=== PATIENT | female | born 1985 | race Caucasian/White ===

== ENCOUNTER 2016-08-29 08:01 | Emergency (ER) | payer OTHER ==
[~2016-08-29] VITALS: Ht 165.1 cm; Wt 75.8 kg
[~2016-08-29 08:01] MED LIST: ASPI325T39 PO; CITA20TA4 PO; LORA-741 PO; OMEP20TA PO
[2016-08-29 08:06] VITALS: TEMP 37; Ht 165.1 cm; Wt 75.8 kg
[2016-08-29] MEDS ORDERED: BCPILLS PO (08:29)
[2016-08-29 08:58] LABS: BASO % 0.3 %; BASO ABS # 0.02 K/uL (0-0.2); COMPLETE YES; HEMATOCRIT 39.8 % (37-47); IG% 0.2 %; LYMPH % 18.2 %; LYMPH ABS # 1.17 K/uL (1.2-3.4); MEAN CELL VOLUME 89.8 fL (80-100); MEAN CORPUSCULAR HGB CONC 33.4 g/dl (32-36); MEAN PLATELET VOLUME 10.4 fL (7.4-10.4); MONO % 7.2 %; NEUT % 72.1 %; PLATELET COUNT 218 K/uL (130-400); RED BLOOD COUNT 4.43 M/uL (4.2-5.4); WHITE BLOOD COUNT 6.42 K/uL (4.8-10.8)
[2016-08-29 09:18] LABS: CALCIUM 8.5 mg/dl (8.5-10.1); CREATININE 0.94 mg/dl (0.60-1.20); POTASSIUM 3.6 mmol/L (3.5-5.1)
[2016-08-29 09:22] LABS: URINE APPEARANCE CLEAR (CLEAR); URINE BILIRUBIN NEG (NEG); URINE COLOR YELLOW; URINE EPITHELIAL CELL AUTO >30 /lpf (0-5); URINE NITRITE NEG (NEG); URINE PH 6.5 (4.5-7.5); URINE SPECIFIC GRAVITY 1.026 (1.000-1.030); UROBILINOGEN NEG (NEG)
[2016-08-29 09:23] LABS: MANUAL MICROSCOPIC REQUIRED? NO; REVIEW REQ? NO
[2016-08-29 09:28] LABS: THYROID STIMULATING HORMONE 2.68 uIu/ml (0.300-4.500)
[2016-08-29] MEDS ORDERED: ONDANSETRON 4MG OD TAB PO STA (09:28)
[2016-08-29] MEDS ORDERED: LORA1TAB13 PO (10:29)
[2016-08-29 10:52] VITALS: BP 97/64; PULSE 71; O2SAT 99
--- NOTE | 2016-08-29 17:15 | EMERGENCY ROOM VISIT NOTE ---
History First contact with patient: 08:15 Chief Complaint: GI ASSESSMENT Stated Complaint: NAUSEA,ANXIETY,HEADACHE Nursing Triage Summary: nausea, episode of diarrhea, states also has a hx of anxiety, states needed her mom to come to her home and she gave her a pill (lorazepam). Pt states she had been prescribed lorazepam in the past, this was her moms pill. "I think I'm dehydrated." per pt. History of Present Illness The patient is a 31 year old white female who presents to the Emergency Room with complaints of nausea, mild headache, and significant anxiety. She states she has a history of anxiety. She used to take a daily anxiolytic, but was doing well and thought she could do without it. She stopped it on her own. She states there was a coworker who was ill at work yesterday. She assisted in that person's care. Shortly after, she developed some anxiety. She was able to control it on her own and went home last night. She had persisting anxiety through the evening. She awoke this morning with worsened anxiety. She did take a half a tablet of lorazepam this morning. It helped, but did not fully resolve her symptoms. Patient states she has been sleeping well. She has chronic stress at work and that it is not any worse than usual. No new medications. She only drinks one cup of coffee per day. No other caffeine intake. No other triggers that she is aware of. She is wondering if she is dehydrated. She is nauseated but denies any vomiting. No fevers, chills, sweats, diarrhea, abdominal pain, or back pain. She did have some tingling in her fingers and toes earlier, but this has resolved. She continues to have some tingling around her lips. She states she has at the end of her menstrual cycle, but does not think that this is related. Review of Systems REVIEW OF SYSTEM: HEENT: No dizziness, visual problems, hearing loss, or tinnitus. There is no difficulty swallowing and no oral lesions are present. PULMONARY: No cough, shortness of breath, sputum production or hemoptysis. CARDIOVASCULAR: No chest pain, palpitations, shortness of breath or peripheral edema. GASTROINTESTINAL: No diarrhea, constipation, nausea, vomiting, or abdominal pain. GENITOURINARY: No dysuria, frequency, urgency or nocturia. NEUROLOGIC: No weakness, muscle tenderness, epilepsy or history of neurological problems. No history of chronic headaches. MUSCULOSKELETAL: No history of joint tenderness/swelling. No history of arthritis or arthralgias. SKIN: No rashes or lesions. PSYCHIATRIC: Positive history of anxiety. ENDOCRINE: No history of diabetes, thyroid disorders, or abnormal hair growth. Past Medical/Surgical History Medical Problems: (1) Ovarian cyst Previous surgeries: Herniorrhaphy age 2. Family History FH: cancer Significant for diabetes and hypertension. Parents are living. Social History Smoking Status: Current Some Day Smoker Smokeless Tobacco Use: No Alcohol Use: occasionally Drug Use: none Marital Status: single Housing Status: lives with family Occupation Status: employed Current/Historical Medications Scheduled Control Pills ( Control Pills), 1 TAB PO DAILY Scheduled PRN Lorazepam (Lorazepam), 1 TAB PO TID PRN for Anxiety/Insomnia Allergies Coded Allergies: Morphine (Verified Adverse Reaction, Unknown, GI SYMPTOMS, 08/29/16) Physical Exam Vital Signs Date Time Temp Pulse Resp B/P Pulse Ox O2 Delivery O2 Flow Rate FiO2 08/29/16 10:52 71 16 97/64 99 08/29/16 10:39 71 97/64 99 Room Air 08/29/16 09:36 76 16 110/67 98 Room Air 08/29/16 08:06 37.0 88 16 127/75 97 Room Air Pain Rating (0-10): 0 Physical Exam Gen.: Well-developed, well-nourished, young white female, in no acute distress. Sitting on a bed. Somewhat anxious. Alert and oriented. Skin:Warm and dry with good turgor. No rashes or lesions. No ecchymosis or erythema. The patient is not diaphoretic. No abrasions. Multiple tattoos. HEENT: Normocephalic atraumatic. Eyes PERRLA, EOMI. No conjunctiva or scleral injection. Ears TMs intact bilaterally with good light reflexes. No erythema or bulging. No hemotympanum. Canals are patent. Nares patent bilaterally without turbinate enlargement. No significant drainage. No epistaxis. Oropharynx without erythema or exudate. Uvula midline, oral mucosa moist. No lesions present. Heart: Heart RRR. No MGR. Peripheral pulses are 2+. Lungs: Lungs are clear to auscultation. No crackles rhonchi or wheezing. Good air movement. The patient is able to take a deep breath. Abdomen: Abdomen was inspected, auscultated, and palpated. Bowel sounds present x 4. Soft, nontender to palpation. No hepato-splenomegaly. No masses noted. No rebound. Musculoskeletal: Gross motor function of the upper and lower extremities is intact and unremarkable. Neurologic: Gross sensation is intact across the upper and lower extremities by soft touch. Cranial nerves II through XII are intact. Medical Decision & Procedures Laboratory Results 08/29/16 08:40 Red Blood Count 4.43, Mean Corpuscular Volume 89.8, Mean Corpuscular Hemoglobin 30.0, Mean Corpuscular Hemoglobin Concent 33.4, Mean Platelet Volume 10.4, Neutrophils (%) (Auto) 72.1, Lymphocytes (%) (Auto) 18.2, Monocytes (%) (Auto) 7.2, Eosinophils (%) (Auto) 2.0, Basophils (%) (Auto) 0.3, Neutrophils # (Auto) 4.63, Lymphocytes # (Auto) 1.17, Monocytes # (Auto) 0.46, Eosinophils # (Auto) 0.13, Basophils # (Auto) 0.02 08/29/16 08:40 Test 08/29/16 08:30 08/29/16 08:40 Urine Color YELLOW Urine Appearance CLEAR (CLEAR) Urine pH 6.5 (4.5-7.5) Urine Specific [place] 1.026 (1.000-1.030) Urine Protein NEG (NEG) Urine Glucose (UA) NEG (NEG) Urine Ketones TRACE (NEG) Urine Occult Blood 1+ (NEG) Urine Nitrite NEG (NEG) Urine Bilirubin NEG (NEG) Urine Urobilinogen NEG (NEG) Urine Leukocyte Esterase NEG (NEG) Urine WBC (Auto) 1-5 /hpf (0-5) Urine RBC (Auto) 0-4 /hpf (0-4) Urine Hyaline Casts (Auto) 1-5 /lpf (0-5) Urine Epithelial Cells (Auto) >30 /lpf (0-5) Urine Bacteria (Auto) NEG (NEG) White Blood Count 6.42 K/uL (4.8-10.8) Red Blood Count 4.43 M/uL (4.2-5.4) Hemoglobin 13.3 g/dL (12.0-16.0) Hematocrit 39.8 % (37-47) Mean Corpuscular Volume 89.8 fL (80-100) Mean Corpuscular Hemoglobin 30.0 pg (25-34) Mean Corpuscular Hemoglobin Concent 33.4 g/dl (32-36) Platelet Count 218 K/uL (130-400) Mean Platelet Volume 10.4 fL (7.4-10.4) Neutrophils (%) (Auto) 72.1 % Lymphocytes (%) (Auto) 18.2 % Monocytes (%) (Auto) 7.2 % Eosinophils (%) (Auto) 2.0 % Basophils (%) (Auto) 0.3 % Neutrophils # (Auto) 4.63 K/uL (1.4-6.5) Lymphocytes # (Auto) 1.17 K/uL (1.2-3.4) Monocytes # (Auto) 0.46 K/uL (0.11-0.59) Eosinophils # (Auto) 0.13 K/uL (0-0.5) Basophils # (Auto) 0.02 K/uL (0-0.2) RDW Standard Deviation 40.9 fL (36.4-46.3) RDW Coefficient of Variation 12.5 % (11.5-14.5) Immature Granulocyte % (Auto) 0.2 % Immature Granulocyte # (Auto) 0.01 K/uL (0.00-0.02) Anion Gap 10.0 mmol/L (3-11) Est Creatinine Clear Calc Drug Dose 87.5 ml/min Estimated GFR () 93.0 Estimated GFR (Non- 80.3 BUN/Creatinine Ratio 15.0 (10-20) Calcium Level 8.5 mg/dl (8.5-10.1) Thyroid Stimulating Hormone (TSH) 2.680 uIu/ml (0.300-4.500) Free Thyroxine 0.93 ng/dl (0.80-1.60) CBC, PRP, UA, urine , TSH, and free T4 were obtained. They're all unremarkable. Medications Administered Medications (Trade) Dose Ordered Sig/Jose Alejandro Route Start Time Stop Time Status Last Admin Dose Admin Ondansetron HCl (Zofran Odt) 4 mg NOW STAT PO 08/29/16 09:28 08/29/16 09:29 DC 08/29/16 09:36 4 MG Zofran 4 mg ODT ED Course Patient was educated regarding today's findings. Conservative care measures were discussed. IV was established. Labs were obtained. She was given Zofran 4 mg ODT. Nausea resolved. She was able to sleep. She felt better upon awaking. I would like her to follow-up with her PCP to discuss a daily anxiolytic again. In the meantime, she was provided a prescription for lorazepam 1 mg to be used every 8 hours as needed. Note for work was provided for today. She may return tomorrow. Return to the ED for any other concerns or acute changes. I'm not sure of the trigger of her anxiety. Medical Decision Possibility of thyroid abnormality, electrolyte abnormality, anemia, lack of sleep, caffeine, and external stress were considered. Impression Primary Impression: Anxiety Departure Information Dispostion Home / Self-Care Condition GOOD Prescriptions Lorazepam (LORAZEPAM) 1 Mg Tab 1 TAB PO TID Y for Anxiety/Insomnia, #15 TAB Prov: Adrian Howe,P.A. 08/29/16 Referrals Lizet Haddad M.D. (PCP) Forms WORK / SCHOOL INSTRUCTIONS, HOME CARE DOCUMENTATION FORM, Days off work : 1 Work Instructions, Return To Work: 1 day Specific Date: 08/30/16 IMPORTANT VISIT INFORMATION Patient Instructions My [facility] Additional Instructions Follow-up with your PCP this week to discuss restarting a baseline anxiety medication Return to the ED for any acute changes Lorazepam 1 mg every 8 hours as needed for anxiety Limit caffeine intake Be sure to get adequate rest and maintain hydration Work Instructions Return To Work: 1 day Specific Date: 08/30/16
== END 2016-08-29 10:52 | disposition home or self-care (01) ==
LOC: C.EDB 08:02 → C.EDA 10:52
DX: F41.9 Anxiety disorder, unspecified (principal); N83.209 Unspecified ovarian cyst, unspecified side; F17.200 Nicotine dependence, unspecified, uncomplicated; Z98.890 Other specified postprocedural states; Z88.5 Allergy status to narcotic agent; Z80.9 Family history of malignant neoplasm, unspecified; Z83.3 Family history of diabetes mellitus; Z82.49 Family history of ischemic heart disease and other diseases of the circulatory system

== ENCOUNTER 2016-10-10 19:16 | Emergency (ER) | payer OTHER ==
[~2016-10-10] VITALS: Ht 165.1 cm; Wt 74.2 kg
[~2016-10-10 19:16] MED LIST changes: -ASPI325T39 PO; +BCPILLS PO; -CITA20TA4 PO; -LORA-741 PO; +LORA1TAB13 PO; -OMEP20TA PO
[2016-10-10 19:20] VITALS: TEMP 36.7; Ht 165.1 cm; Wt 74.2 kg
[2016-10-10 19:34] VITALS: O2SAT 98
--- NOTE | 2016-10-10 19:42 | DIAGNOSTIC IMAGING REPORT ---
CHEST ONE VIEW PORTABLE HISTORY: Evaluate Fever/Sepsis COMPARISON: Chest 11/15/2014. FINDINGS: The lungs are clear. Cardiac silhouette is normal in size. No pleural effusions. No pneumothorax. IMPRESSION: No acute process. Electronically signed by: Rodrigo Angulo M.D. 10/10/2016 7:41 PM Dictated Date/Time: 10/10/2016 7:40 PM
[2016-10-10 20:01] LABS: ISTAT CREATININE 0.8 mg/dl (0.6-1.3); ISTAT HEMOGLOBIN 13.9 g/dl (12.0-16.0); ISTAT IONIZED CALCIUM 1.2 mmol/l (1.12-1.32)
--- NOTE | 2016-10-10 20:07 | EMERGENCY ROOM VISIT NOTE ---
History Report prepared by Mahsa: Tegan Marr Under the Supervision of: Dr. Saad Barron D.O. First contact with patient: 19:24 Chief Complaint: CHEST PAIN Stated Complaint: CHEST PAIN History of Present Illness The patient is a 31 year old female who presents to the Emergency Room with complaints of persistent central chest pain that began a few days ago, but worsened today. She currently rates her discomfort as a 6/10 in severity. The patient describes her pain as a sharp pain intermittently, but states that the pain is always there. She additionally associates shortness of breath with her symptoms today. The patient denies ever having pain like this in the past. She denies any recent illness, fevers, chills, or cough. Source of History: patient Onset: today Position: chest (central) Symptom Intensity: 6/10 Quality: sharp Timing: worsening, other (persistent) Associated Symptoms: + SOB, No chills, No cough, No fevers Review of Systems See HPI for pertinent positives & negatives. A total of 10 systems reviewed and were otherwise negative. Past Medical & Surgical Medical Problems: (1) Ovarian cyst Family History FH: cancer Social History Smoking Status: Current Some Day Smoker Alcohol Use: occasionally Drug Use: none Marital Status: single Housing Status: lives with family Occupation Status: employed Current/Historical Medications Scheduled Control Pills ( Control Pills), 1 TAB PO DAILY Scheduled PRN Lorazepam (Lorazepam), 1 TAB PO TID PRN for Anxiety/Insomnia Allergies Coded Allergies: Morphine (Verified Adverse Reaction, Unknown, GI SYMPTOMS, 08/29/16) Physical Exam Vital Signs Date Time Temp Pulse Resp B/P Pulse Ox O2 Delivery O2 Flow Rate FiO2 10/10/16 19:34 98 Room Air 10/10/16 19:34 98 Room Air 10/10/16 19:20 36.7 72 18 112/75 94 Room Air Physical Exam CONSTITUTIONAL/VITAL SIGNS: Reviewed / noted above. GENERAL: Non-toxic in appearance. INTEGUMENTARY: Warm, dry, and [place]. HEAD: Normocephalic. EYES: without scleral icterus or trauma. ENT/OROPHARYNX: clear and moist. LYMPHADENOPATHY/NECK: Is supple without lymphadenopathy or meningismus. RESPIRATORY: Lungs clear and equal. CARDIOVASCULAR: Regular rate and rhythm. GI/ABDOMEN: Soft and nontender. No organomegaly or pulsatile mass. No rebound or guarding. Normal bowel sounds. EXTREMITIES: Warm and well perfused. BACK: No CVA tenderness. NEUROLOGICAL: Intact without focal deficits. PSYCHIATRIC: normal affect. MUSCULOSKELETAL: Normally developed with good muscle tone. Medical Decision & Procedures ER Provider Diagnostic Interpretation: X ray results and stated below per my interpretation and radiology interpretation. CHEST ONE VIEW PORTABLE HISTORY: Evaluate Fever/Sepsis COMPARISON: Chest 11/15/2014. FINDINGS: The lungs are clear. Cardiac silhouette is normal in size. No pleural effusions. No pneumothorax. IMPRESSION: No acute process. Electronically signed by: Rodrigo Angulo M.D. 10/10/2016 7:41 PM Dictated Date/Time: 10/10/2016 7:40 PM Laboratory Results Test 10/10/16 19:45 10/10/16 19:48 Bedside D-Dimer 100 ng/mlFEU (0-450) Bedside Troponin I 0.000 ng/ml (0-0.045) Bedside Hemoglobin 13.9 g/dl (12.0-16.0) Bedside Hematocrit 41 % (37-47) Bedside Sodium 141 mEq/L (135-144) Bedside Potassium 3.4 mEq/L (3.3-5.0) Bedside Chloride 103 mEq/L (101-112) Bedside Total CO2 25 mEq/l (24-31) Anion Gap 18.0 mmol/L (16-25) Bedside Blood Urea Nitrogen 19 mg/dl (7-18) Bedside Creatinine 0.8 mg/dl (0.6-1.3) Bedside Glucose (other) 82 mg/dl (70-99) Bedside Ionized Calcium (Xiomy) 1.20 mmol/l (1.12-1.32) Laboratory results as stated above per my review. ECG Indication: chest pain Rate (beats per minute): 65 Rhythm: normal sinus Findings: no acute ischemic change, no ectopy ED Course 1926: Previous medical records were reviewed. The patient was evaluated in room C11B. A complete history and physical examination was performed. 2005: I reevaluated the patient and she is resting comfortably. I discussed the exam findings wither and I discussed the treatment plan. She verbalized complete understanding and agreement. She is ready to go home. Medical Decision the differential was considered includes acute myocardial infarction, acute coronary syndrome, myocarditis, pericarditis, pericardial effusions /tamponade, esophageal perforation, thoracic aortic dissection, pulmonary embolism, pneumonia, pneumothorax, pancreatitis, shingles, acute cholecystitis, perforated abdominal viscus. . This is a 31-year-old female who presents to the ED with a chief complaint of a sharp continuous retrosternal chest pain that has been present for the past couple of days. She states that she has some associated shortness of breath. The patient denies any recent illness, fevers chills. She states that she has tried an Ativan 30 minutes ago. She also took some Prilosec and ibuprofen earlier today. Her pain is mainly retrosternal and slightly to the right. The patient's physical exam was normal. She appears to be slightly anxious. She does report a history of anxiety. She was also seen at [facility] for the same symptoms a few days ago. Chest x-ray did not show acute disease. Chemistry panel was unremarkable. She is not anemic. D-dimer is negative as is troponin. The patient was told results. She is now feeling better. She is felt to be stable for discharge. She has follow-up later this week with her PCP. Impression Primary Impression: Retrosternal chest pain Scribe Attestation The scribe's documentation has been prepared under my direction and personally reviewed by me in its entirety. I confirm that the note above accurately reflects all work, treatment, procedures, and medical decision making performed by me. Departure Information Dispostion Home / Self-Care Referrals No Doctor, Assigned (PCP) Forms HOME CARE DOCUMENTATION FORM, IMPORTANT VISIT INFORMATION Patient Instructions ED Chest Pain NonCardiac, My [facility] Additional Instructions Follow-up with your doctor for further care and evaluation in 1-2 days. Return to the emergency department for worsening or new symptoms or any concerns. You have been examined and treated today on an emergency basis only. This is not a substitute for, or an effort to provide, complete comprehensive medical care. It is impossible to recognize and treat all injuries or illnesses in a single emergency department visit. It is therefore important that you follow up closely with your doctor. Call as soon as possible for an appointment.
[2016-10-10 20:11] VITALS: BP 115/57; PULSE 60; O2SAT 98
[2016-10-10] MEDS ORDERED: ZLF/100 PO (20:11)
[2016-10-10] MEDS ORDERED: ATV/1 PO (20:11)
== END 2016-10-10 20:21 | disposition home or self-care (01) ==
LOC: C.EDB 19:17 → C.EDC 20:21
DX: R07.2 Precordial pain (principal); N83.209 Unspecified ovarian cyst, unspecified side; F17.200 Nicotine dependence, unspecified, uncomplicated; Z88.5 Allergy status to narcotic agent; Z80.9 Family history of malignant neoplasm, unspecified

== ENCOUNTER 2017-01-12 20:35 | Emergency (ER) | payer OTHER ==
[~2017-01-12] VITALS: Ht 165.1 cm; Wt 73.0 kg
[~2017-01-12 20:35] MED LIST changes: +ATV/1 PO; -BCPILLS PO; -LORA1TAB13 PO; +ZLF/100 PO
[2017-01-12 20:50] VITALS: TEMP 36.9; Ht 165.1 cm; Wt 73.0 kg
[2017-01-12] MEDS ORDERED: NUVVR INT UTER (21:41)
[2017-01-12] MEDS ORDERED: SERT1TAB88 PO (21:41)
[2017-01-12] MEDS ORDERED: PRLSR20 PO (21:41)
--- NOTE | 2017-01-12 22:42 | EMERGENCY ROOM VISIT NOTE ---
History Report prepared by Mahsa: Veronica Sewell Under the Supervision of: Dr. Dontrell Angela M.D. 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 The patient has a history of panic attacks. She was just sitting in her home when it began. She had a tightness in her chest and felt unable to breathe. She did not hyperventilate. She had tingling in her hands and lips. She took some Ativan which relieved her symptoms. She was feeling well earlier in the day. She denies any calf pain. She admits to not drinking enough water at times. She is supposed to be on Zoloft, but often forgets to take it. She denies any chance of . She denies any other medical problems. Source of History: patient Onset: LOCATION MANAGER Position: other (global) Quality: other (panic attack) Timing: other (episodic) Modifying Factors (Relieving): other (ativan) Associated Symptoms: + chest pain, + SOB Note: Pt reports tingling in hands and lips. Pt denies calf pain. Review of Systems See HPI for pertinent positives & negatives. A total of 10 systems reviewed and were otherwise negative. Past Medical & Surgical Medical Problems: (1) Ovarian cyst Old medical records were reviewed. Nurse's notes were reviewed and I agree with. Family History FH: cancer Social History Smoking Status: Former Smoker Alcohol Use: occasionally Drug Use: none Marital Status: single Housing Status: lives with family Occupation Status: employed Current/Historical Medications Scheduled Etonogestrel/Ethinyl Estradiol (Nuvaring), INT UTER UD Omeprazole (Prilosec), 20 MG PO DAILY Sertraline HCl (Sertraline HCl), 100 MG PO DAILY Sertraline HCl (Sertraline HCl), 25 MG PO DAILY Scheduled PRN Lorazepam (Ativan), 1 MG PO TID PRN for Anxiety/Insomnia Allergies Coded Allergies: Morphine (Verified Adverse Reaction, Unknown, GI SYMPTOMS, 08/29/16) Physical Exam Vital Signs Date Time Temp Pulse Resp B/P (MAP) Pulse Ox O2 Delivery O2 Flow Rate FiO2 01/12/17 22:52 70 18 101/49 98 01/12/17 22:50 70 18 101/49 98 Room Air 8/23/17 20:50 36.9 72 18 133/61 97 Room Air 01/12/17 20:42 84 Physical Exam General: Non ill appearing young female in no acute distress. Well developed well nourished, breathing comfortably on room air. Normal speech HEENT: Normal cephalic atraumatic. Pupils are equal round and reactive to light. Extraocular movements are intact. Oropharynx is pink with moist mucous membranes. No swelling of the mouth lips or tongue. Neck: Supple with a midline trachea. No meningeal signs or stiffness, no JVD or bruits. No Stridor. Chest: Clear to auscultation bilaterally. No wheezes or rhonchi. No increased work of breathing. Heart: regular rate and rhythm. Abdomen: Soft nontender, nondistended without rebound guarding or rigidity. Extremities: No cyanosis clubbing or edema. No calf tenderness or assymetry Spine/Back. Non tender to palpation. No CVA tenderness Skin: Good turgor without rashes. Neurologic exam: Cranial nerves two through 12 are intact. Motor and sensation are intact and symmetrical throughout. Psych: Normal affect and thought process, denies SI/HI. Medical Decision & Procedures Laboratory Results Test 01/12/17 21:57 Urine Test NEG (NEG) Laboratory studies as stated above per my review. Medications Administered Medications (Trade) Dose Ordered Sig/Jose Alejandro Route Start Time Stop Time Status Last Admin Dose Admin Lorazepam (Ativan 1MG Home Pack) 1 homepack UD ONCE PO 01/12/17 22:45 01/12/17 22:46 DC 01/12/17 22:51 1 HOMEPACK ECG Indication: SOB/dyspnea Rate (beats per minute): 62 Rhythm: normal sinus Findings: no acute ischemic change, no ectopy, other (normal intervals) Comparison ECG Date: 10-Oct-2016 Change: no significant change ED Course 2118: Past medical records reviewed. The patient was evaluated in room B4B, and a complete history and physical examination were performed. 2226: Upon reevaluation, the patient is feeling better. I discussed the results and treatment plan with her. She verbalized agreement of the treatment plan. The patient was discharged home. 5: Lorazepam 1 homepack PO. Medical Decision Differentials include, but are not limited to; anxiety, arrhythmia, depression. This patient comes in as described above. She had episode where she had a panic attack. She has a history of them. She is feeling better after taking a benzodiazepine. I did an EKG here and there is no evidence to suggest arrhythmia or preexcitation or acute coronary syndrome. She is not . She's had this multiple times before. I had her psychiatric correctional case records supervisor talk to her give her resources right . she does not have a psychiatrist or counselor and is getting all her meds through her primary care doctor. I did give her home pack of Ativan and she can use if needed for anxiety but warned her that it could make her drowsy and do not take before drinking, driving, working. She was encouraged to return if: she has worsening of symptoms, fever or chills , any new problems concerns. She was happy with plan and discharged home. Medication Reconcilliation Current Medication List: was personally reviewed by me Blood Pressure Screening Patient's blood pressure: Normal blood pressure Blood pressure disposition: Did not require urgent referral Impression Primary Impression: Anxiety Scribe Attestation The scribe's documentation has been prepared under my direction and personally reviewed by me in its entirety. I confirm that the note above accurately reflects all work, treatment, procedures, and medical decision making performed by me. Departure Information Dispostion Home / Self-Care Referrals No Doctor, Assigned (PCP) Forms HOME CARE DOCUMENTATION FORM, IMPORTANT VISIT INFORMATION Patient Instructions My [facility] Additional Instructions Rest. Drink plenty of fluids. Return if: Worsening of symptoms, further anxiety, thoughts of hurting herself or others, any new problems or concerns Follow-up with your doctor or mental health professional as information provided tonight For severe anxiety may use Ativan 1 mg every 12 hours as needed. Do not take with alcohol or any other anxiety medicine dictation such as Xanax. Do not take Ativan before you are going to drink drive or work
[2017-01-12] MEDS ORDERED: ATIVAN 1MG HOMEPACK PO ONE (22:45)
[2017-01-12 22:52] VITALS: BP 101/49; PULSE 70; O2SAT 98
== END 2017-01-12 22:52 | disposition home or self-care (01) ==
LOC: EDBD 20:35 → C.EDB 20:38
DX: F41.9 Anxiety disorder, unspecified (principal); N83.209 Unspecified ovarian cyst, unspecified side; Z87.891 Personal history of nicotine dependence; Z79.899 Other long term (current) drug therapy; Z88.5 Allergy status to narcotic agent; Z80.9 Family history of malignant neoplasm, unspecified

== ENCOUNTER 2017-07-30 13:18 | Emergency (ER) | payer OTHER ==
[~2017-07-30] VITALS: Ht 165.1 cm; Wt 75.0 kg
[~2017-07-30 13:18] MED LIST changes: +NUVVR INT UTER; -ZLF/100 PO
[2017-07-30 13:20] VITALS: TEMP 36.9; Ht 165.1 cm; Wt 75.0 kg
[2017-07-30] MEDS ORDERED: LORAZEPAM 0.5 MG TAB SL STA (13:35)
[2017-07-30 14:19] LABS: BASO % 0.4 %; BASO ABS # 0.02 K/uL (0-0.2); EOS % 1.6 %; EOS ABS # 0.09 K/uL (0-0.5); HEMATOCRIT 41.4 % (37-47); HEMOGLOBIN 13.8 g/dL (12.0-16.0); IG# 0.01 K/uL (0.00-0.02); LYMPH % 36.6 %; LYMPH ABS # 2.01 K/uL (1.2-3.4); MEAN CELL VOLUME 87.9 fL (80-100); MEAN CORPUSCULAR HEMOGLOBIN 29.3 pg (25-34); MEAN CORPUSCULAR HGB CONC 33.3 g/dl (32-36); MEAN PLATELET VOLUME 10.1 fL (7.4-10.4); MONO % 8.4 %; MONO ABS # 0.46 K/uL (0.11-0.59); NEUT % 52.8 %; PLATELET COUNT 241 K/uL (130-400); RED CELL DISTRIBUTION WIDTH CV 12.3 % (11.5-14.5); RED CELL DISTRIBUTION WIDTH SD 39.7 fL (36.4-46.3); WHITE BLOOD COUNT 5.49 K/uL (4.8-10.8)
[2017-07-30 14:28] LABS: PTT PATIENT 25.1 SECONDS (21.0-31.0)
--- NOTE | 2017-07-30 14:28 | DIAGNOSTIC IMAGING REPORT ---
CHEST 2 VIEWS ROUTINE HISTORY: 32 years-old Female Chest tightness acute chest tightness with anxiety COMPARISON: Chest radiograph 10/10/2016 TECHNIQUE: PA and lateral views of the chest FINDINGS: Cardiomediastinal and hilar silhouettes are within normal limits. No pneumothorax, pleural effusion, focal airspace consolidation or overt pulmonary edema. The bones of the chest appear grossly intact. IMPRESSION: No acute process. The above report was generated using voice recognition software. It may contain grammatical, syntax or spelling errors. Electronically signed by: Adelfo Gonzalez M.D. 07/30/2017 2:26 PM Dictated Date/Time: 07/30/2017 2:26 PM
[2017-07-30] MEDS ORDERED: OPTIRAY 320 IV PRN (14:30)
[2017-07-30 14:38] LABS: CALCIUM 8.4 mg/dl (8.5-10.1); CREATININE 0.84 mg/dl (0.60-1.20); POTASSIUM 3.8 mmol/L (3.5-5.1)
[2017-07-30] MEDS ORDERED: PARO20TA4 PO (14:41)
[2017-07-30] MEDS ORDERED: PRLSR20 PO (14:41)
--- NOTE | 2017-07-30 15:40 | DIAGNOSTIC IMAGING REPORT ---
(CHEST FOR PE) ANGIO WITH CT DOSE: 313.93 mGy.cm HISTORY: 32 years-old Female presents with acute atypical chest pain and elevated d-dimer level. TECHNIQUE: Multiple CTA images of the chest were obtained after the intravenous administration of 78 ml Optiray 320. Coronal and sagittal MIPS were obtained from the axial data set and were submitted for review. A dose lowering technique was utilized adhering to the principles of ALARA. COMPARISON: Chest radiographs 07/30/2017 FINDINGS: CTA: Heart is normal in size without pericardial effusion. No thoracic aortic aneurysm or dissection. The imaged great vessels appear patent. The pulmonary arterial tree is opacified to level of the proximal subsegmental branches and demonstrates no focal filling defects to suggest pulmonary thromboembolic disease. CT CHEST: No dominant thyroid nodule identified. No pathologic adenopathy of the chest identified. Nonspecific mildly prominent 8 mm periesophageal lymph node is seen on the left, image 188 series 4. Mild residual thymic tissue of the anterior mediastinum. There is no pneumothorax, pleural effusion or focal airspace consolidation. Minimal dependent subsegmental bibasilar atelectasis. Central airways are patent. No acute abnormality of the imaged upper abdomen. Soft tissues and breast parenchyma appear unremarkable. Bones appear intact. IMPRESSION: 1. No acute intrathoracic abnormality identified, specifically no acute aortic pathology or evidence of pulmonary thromboembolic disease. 2. No lobar airspace consolidation or pathologic adenopathy. The above report was generated using voice recognition software. It may contain grammatical, syntax or spelling errors. Electronically signed by: Adelfo Gonzalez M.D. 07/30/2017 3:38 PM Dictated Date/Time: 07/30/2017 3:33 PM
--- NOTE | 2017-07-30 15:46 | EMERGENCY ROOM VISIT NOTE ---
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 The patient states that she has a history of anxiety for which she is on Paxil. She took 0.5 mg of Ativan prior to arrival thinking that it was her anxiety but she is not feeling any better. The patient denies any trauma to the chest. The patient denies any chest pressure. The patient denies any history of asthma or recent URI symptoms. The patient denies any recent travel or recent surgery. The patient denies any recent leg pain or any history of blood clots. The patient is on the NuvaRing. Review of Systems 10 system review was performed and was negative unless stated otherwise history of present illness. Past Medical/Surgical History Medical Problems: (1) Ovarian cyst Family History FH: cancer Social History Smoking Status: Former Smoker Alcohol Use: occasionally Drug Use: none Marital Status: single Housing Status: lives with family Occupation Status: employed Current/Historical Medications Scheduled Etonogestrel/Ethinyl Estradiol (Nuvaring), INT UTER UD Omeprazole (Prilosec), 20 MG PO DAILY Paroxetine Hcl (Paxil), 1 TAB PO DAILY Scheduled PRN Lorazepam (Ativan), 1 MG PO TID PRN for Anxiety/Insomnia Physical Exam Vital Signs Date Time Temp Pulse Resp B/P (MAP) Pulse Ox O2 Delivery O2 Flow Rate FiO2 07/30/17 15:19 66 18 131/70 100 Room Air 07/30/17 13:20 36.9 78 16 135/84 99 Physical Exam GENERAL: 32-year-old female appears in no acute distress. MENTAL Status: Alert and oriented 3. NECK: Supple, no lymphadenopathy noted. No carotid bruits noted. LUNGS: Clear auscultation without wheezes rales or rhonchi. CARDIAC: Regular rate and rhythm without murmur. Pulses is full and equal throughout. LOWER EXTREMITIES: Calves are nontender. Negative Homans bilaterally. No erythema, edema noted. Medical Decision & Procedures ER Provider Diagnostic Interpretation: (CHEST FOR PE) ANGIO WITH CT DOSE: 313.93 mGy.cm HISTORY: 32 years-old Female presents with acute atypical chest pain and elevated d-dimer level. TECHNIQUE: Multiple CTA images of the chest were obtained after the intravenous administration of 78 ml Optiray 320. Coronal and sagittal MIPS were obtained from the axial data set and were submitted for review. A dose lowering technique was utilized adhering to the principles of ALARA. COMPARISON: Chest radiographs 07/30/2017 FINDINGS: CTA: Heart is normal in size without pericardial effusion. No thoracic aortic aneurysm or dissection. The imaged great vessels appear patent. The pulmonary arterial tree is opacified to level of the proximal subsegmental branches and demonstrates no focal filling defects to suggest pulmonary thromboembolic disease. CT CHEST: No dominant thyroid nodule identified. No pathologic adenopathy of the chest identified. Nonspecific mildly prominent 8 mm periesophageal lymph node is seen on the left, image 188 series 4. Mild residual thymic tissue of the anterior mediastinum. There is no pneumothorax, pleural effusion or focal airspace consolidation. Minimal dependent subsegmental bibasilar atelectasis. Central airways are patent. No acute abnormality of the imaged upper abdomen. Soft tissues and breast parenchyma appear unremarkable. Bones appear intact. IMPRESSION: 1. No acute intrathoracic abnormality identified, specifically no acute aortic pathology or evidence of pulmonary thromboembolic disease. 2. No lobar airspace consolidation or pathologic adenopathy. The above report was generated using voice recognition software. It may contain grammatical, syntax or spelling errors. Electronically signed by: Adelfo Gonzalez M.D. 07/30/2017 3:38 PM CHEST 2 VIEWS ROUTINE HISTORY: 32 years-old Female Chest tightness acute chest tightness with anxiety COMPARISON: Chest radiograph 10/10/2016 TECHNIQUE: PA and lateral views of the chest FINDINGS: Cardiomediastinal and hilar silhouettes are within normal limits. No pneumothorax, pleural effusion, focal airspace consolidation or overt pulmonary edema. The bones of the chest appear grossly intact. IMPRESSION: No acute process. The above report was generated using voice recognition software. It may contain grammatical, syntax or spelling errors. Electronically signed by: Adelfo Gonzalez M.D. 07/30/2017 2:26 PM Laboratory Results 07/30/17 13:49 Red Blood Count 4.71, Mean Corpuscular Volume 87.9, Mean Corpuscular Hemoglobin 29.3, Mean Corpuscular Hemoglobin Concent 33.3, Mean Platelet Volume 10.1, Neutrophils (%) (Auto) 52.8, Lymphocytes (%) (Auto) 36.6, Monocytes (%) (Auto) 8.4, Eosinophils (%) (Auto) 1.6, Basophils (%) (Auto) 0.4, Neutrophils # (Auto) 2.90, Lymphocytes # (Auto) 2.01, Monocytes # (Auto) 0.46, Eosinophils # (Auto) 0.09, Basophils # (Auto) 0.02 07/30/17 13:49 Test 07/30/17 13:49 07/30/17 13:55 White Blood Count 5.49 K/uL (4.8-10.8) Red Blood Count 4.71 M/uL (4.2-5.4) Hemoglobin 13.8 g/dL (12.0-16.0) Hematocrit 41.4 % (37-47) Mean Corpuscular Volume 87.9 fL (80-100) Mean Corpuscular Hemoglobin 29.3 pg (25-34) Mean Corpuscular Hemoglobin Concent 33.3 g/dl (32-36) Platelet Count 241 K/uL (130-400) Mean Platelet Volume 10.1 fL (7.4-10.4) Neutrophils (%) (Auto) 52.8 % Lymphocytes (%) (Auto) 36.6 % Monocytes (%) (Auto) 8.4 % Eosinophils (%) (Auto) 1.6 % Basophils (%) (Auto) 0.4 % Neutrophils # (Auto) 2.90 K/uL (1.4-6.5) Lymphocytes # (Auto) 2.01 K/uL (1.2-3.4) Monocytes # (Auto) 0.46 K/uL (0.11-0.59) Eosinophils # (Auto) 0.09 K/uL (0-0.5) Basophils # (Auto) 0.02 K/uL (0-0.2) RDW Standard Deviation 39.7 fL (36.4-46.3) RDW Coefficient of Variation 12.3 % (11.5-14.5) Immature Granulocyte % (Auto) 0.2 % Immature Granulocyte # (Auto) 0.01 K/uL (0.00-0.02) Prothrombin Time 10.4 SECONDS (9.0-12.0) Prothromb Time International Ratio 1.0 (0.9-1.1) Activated Partial Thromboplast Time 25.1 SECONDS (21.0-31.0) Partial Thromboplastin Ratio 1.0 Anion Gap 7.0 mmol/L (3-11) Est Creatinine Clear Calc Drug Dose 96.5 ml/min Estimated GFR () 105.8 Estimated GFR (Non- 91.3 BUN/Creatinine Ratio 11.1 (10-20) Calcium Level 8.4 mg/dl (8.5-10.1) Bedside D-Dimer > 450 ng/mlFEU (0-450) Medications Administered Medications (Trade) Dose Ordered Sig/Jose Alejandro Route Start Time Stop Time Status Last Admin Dose Admin Lorazepam (Ativan Tab) 0.5 mg NOW STAT SL 07/30/17 13:35 07/30/17 13:36 DC 07/30/17 13:45 0.5 MG ED Course The patient was evaluated. Patient's EMR medication list were reviewed. The patient was given additional 0.5 mg of lorazepam. [id number] d-dimer was elevated over 600.. Chest x-ray was ordered interpreted by the radiologist and myself as above. The patient was informed of the elevated d-dimer. She was reevaluated and states she was feeling better but now felt nervous due to the elevated d-dimer. IV access was obtained. CBC and differential, coags, renal profile was ordered. CT for PE was ordered interpreted by the radiologist as above. Medical Decision Differential diagnosis include anxiety, pneumonia, asthma, reactive airway disease, PE [place] Drug Monitoring Program Search Results: patient reviewed within database Medication Reconcilliation Current Medication List: was personally reviewed by me Blood Pressure Screening Patient's blood pressure: Normal blood pressure Impression Primary Impression: Generalized anxiety disorder with panic attacks Departure Information Dispostion Home / Self-Care Condition GOOD Referrals No Doctor, Assigned (PCP) Forms Call Back Authorization, HOME CARE DOCUMENTATION FORM, IMPORTANT VISIT INFORMATION Patient Instructions My [facility] [employer] Additional Instructions Continue Paxil daily as prescribed. Continue lorazepam as needed for panic attacks. If symptoms persist or worsen, follow-up with your family doctor for reevaluation.
[2017-07-30 16:00] VITALS: BP 105/61; PULSE 70; O2SAT 98
[2017-07-30] MEDS ORDERED: ATIVAN 1MG HOMEPACK PO ONE (16:00)
== END 2017-07-30 16:00 | disposition home or self-care (01) ==
LOC: C.EDB 13:19 → C.EDC 16:00
DX: F41.0 Panic disorder [episodic paroxysmal anxiety] (principal); R79.89 Other specified abnormal findings of blood chemistry; Z87.891 Personal history of nicotine dependence